=== PATIENT | female | born 1950 | race Caucasian/White ===

== ENCOUNTER 2018-11-15 18:17 | Inpatient (IN) | payer OTHER ==
[~2018-11-15] VITALS: Ht 160 cm; Wt 90.7 kg
[2018-11-15] MEDS ORDERED: QUET25TA PO (18:31)
[2018-11-15] MEDS ORDERED: LURA20TA PO (18:31)
[2018-11-15] MEDS ORDERED: METF-440 PO (18:31)
[2018-11-15] MEDS ORDERED: DULO60CA45 PO (18:31)
[2018-11-15] MEDS ORDERED: ATOR20TA PO (18:31)
[2018-11-15] MEDS ORDERED: APIX5TAB PO (18:31)
[2018-11-15] MEDS ORDERED: BUSP10TA3 PO (18:31)
[2018-11-15] MEDS ORDERED: CHOL50004 PO (18:31)
[2018-11-15] MEDS ORDERED: CYAN-51 PO (18:31)
[2018-11-15] MEDS ORDERED: CARB-93 PO (18:31)
[2018-11-15] MEDS ORDERED: CLON2TAB11 PO (18:31)
[2018-11-15 21:26] VITALS: BP 125/78
[2018-11-15] MEDS ORDERED: ACETAMINOPHEN 325 MG TABLET PO PRN (21:30)
[2018-11-15] MEDS ORDERED: BLOOD SUGAR DIAGNOSTIC 1 EACH STRIP VI ONE (21:30)
[2018-11-15] MEDS ORDERED: MAG HYDROX/AL HYDROX/SIMETH 30 ML LIQUID UDC PO PRN (21:30)
[2018-11-15] MEDS ORDERED: MAGNESIUM HYDROXIDE 30 ML LIQUID UDC PO PRN (21:30)
[2018-11-15] MEDS ORDERED: LORAZEPAM 0.5 MG TABLET PO PRN (21:30)
[2018-11-15] MEDS ORDERED: DEXTROSE 50% 50 ML DISP.SYRIN IV PRN (22:45)
[2018-11-15] MEDS: TEMAZEPAM 7.5 MG CAPSULE PO PRN (22:57)
[2018-11-16] MEDS: BLOOD SUGAR DIAGNOSTIC 1 EACH STRIP VI SCH ×4 (06:46→21:31)
[2018-11-16] MEDS: INSULIN REGULAR, HUMAN 300 UNIT/3 ML VIAL SQ PRN ×4 (06:47→22:12)
[2018-11-16 08:00] VITALS: BP 135/67
[2018-11-16] MEDS ORDERED: MISCELLANEOUS MED PO SCH (09:00)
[2018-11-16] MEDS: CLONAZEPAM 1 MG TABLET PO SCH ×3 (09:04→16:27)
[2018-11-16] MEDS: busPIRone 10 MG TABLET PO SCH ×3 (09:04→16:27)
[2018-11-16] MEDS: LURASIDONE 20 MG PO SCH (13:30)
[2018-11-16] MEDS: [UNRECOGNIZED DRUG - OTHER] PO SCH (13:30)
[2018-11-16] MEDS: LORAZEPAM 1 MG TABLET PO PRN ×2 (14:32→20:32)
[2018-11-16 15:25] VITALS: BP 138/69
[2018-11-16] MEDS: CARBIDOPA/LEVODOPA 25-100MG TABLET PO SCH (16:26)
[2018-11-16] MEDS: APIXABAN 5 MG TABLET PO SCH (16:29)
[2018-11-16] MEDS: METFORMIN HCL 500 MG TABLET PO SCH (17:37)
[2018-11-16 20:12] VITALS: BP 122/64
[2018-11-16] MEDS: ATORVASTATIN 20 MG TABLET PO SCH (20:29)
[2018-11-16] MEDS: TEMAZEPAM 7.5 MG CAPSULE PO PRN (20:29)
[2018-11-16] MEDS: DULOXETINE 60 MG CAPSULE.DR PO SCH (20:29)
[2018-11-17 06:22] LABS: BASOPHILS # (AUTO) 0.1 K/uL (0.0-8.0); EOSINOPHILS # (AUTO) 0.2 K/uL (0.0-0.7); HEMOGLOBIN 13.3 g/dL (10.9-14.3); LYMPHOCYTES # (AUTO) 2.2 K/uL (20.0-40.0); LYMPHOCYTES % (AUTO) 32.3 % (20.5-51.5); MEAN CORPUSCULAR HGB CONC 34 g/dL (32.3-35.6); MEAN CORPUSCULAR VOLUME 85.1 fL (75.5-95.3); MONOCYTES # (AUTO) 0.5 K/uL (2.0-10.0); MONOCYTES % (AUTO) 7.5 % (0.0-11.0); NEUTROPHILS # (AUTO) 3.8 K/uL (1.8-8.9); NEUTROPHILS % (AUTO) 56.2 % (38.5-71.5); PLATELET COUNT (AUTO) 205 K/uL (179-408); RED BLOOD CELL COUNT(AUTO) 4.58 MIL/uL (3.63-4.92); WHITE BLOOD COUNT (AUTO) 6.8 K/uL (3.8-11.8)
[2018-11-17 06:32] LABS: ALANINE AMINOTRANSFERASE 18 U/L (14-59); ALKALINE PHOSPHATASE 72 U/L (50-136); ASPARTATE AMINOTRANSFERASE < 5 U/L (15-37); BILIRUBIN,TOTAL 0.6 mg/dL (0.2-1.0); CARBON DIOXIDE 28 mmol/L (21-32); CHLORIDE 105 mmol/L (98-107); CREATININE 0.8 mg/dL (0.6-1.3); GLUCOSE 141 mg/dL (74-106); PHOSPHOROUS 3.7 mg/dL (2.5-4.9); POTASSIUM 4.3 mmol/L (3.5-5.1); TOTAL PROTEIN, SERUM 7.1 g/dL (6.4-8.2); UREA NITROGEN, BLOOD 14 mg/dL (7-18)
[2018-11-17] MEDS: BLOOD SUGAR DIAGNOSTIC 1 EACH STRIP VI SCH ×4 (06:51→20:37)
[2018-11-17 07:30] VITALS: BP 128/79
[2018-11-17] MEDS: CYANOCOBALAMIN 1,000 MCG TABLET PO SCH (08:21)
[2018-11-17] MEDS: LURASIDONE 20 MG PO SCH (08:21)
[2018-11-17] MEDS: [UNRECOGNIZED DRUG - OTHER] PO SCH (08:21)
[2018-11-17] MEDS: CLONAZEPAM 1 MG TABLET PO SCH ×3 (08:21→16:22)
[2018-11-17] MEDS: APIXABAN 5 MG TABLET PO SCH ×2 (08:22→16:23)
[2018-11-17] MEDS: METFORMIN HCL 500 MG TABLET PO SCH ×2 (08:25→17:07)
[2018-11-17] MEDS: busPIRone 10 MG TABLET PO SCH ×3 (08:31→16:24)
[2018-11-17] MEDS: CARBIDOPA/LEVODOPA 25-100MG TABLET PO SCH ×2 (08:31→16:24)
[2018-11-17] MEDS: INSULIN REGULAR, HUMAN 300 UNIT/3 ML VIAL SQ PRN ×3 (08:35→21:02)
[2018-11-17] MEDS: LORAZEPAM 1 MG TABLET PO PRN (09:49)
[2018-11-17 16:00] VITALS: BP 122/52
[2018-11-17] MEDS: ATORVASTATIN 20 MG TABLET PO SCH (20:29)
[2018-11-17] MEDS: DULOXETINE 60 MG CAPSULE.DR PO SCH (20:29)
[2018-11-17 20:55] VITALS: BP 141/71
[2018-11-17] MEDS: TEMAZEPAM 7.5 MG CAPSULE PO PRN (22:09)
[2018-11-18] MEDS: BLOOD SUGAR DIAGNOSTIC 1 EACH STRIP VI SCH ×4 (06:35→20:40)
[2018-11-18 07:30] VITALS: BP 142/82
[2018-11-18] MEDS: CYANOCOBALAMIN 1,000 MCG TABLET PO SCH (08:28)
[2018-11-18] MEDS: METFORMIN HCL 500 MG TABLET PO SCH ×2 (08:28→17:11)
[2018-11-18] MEDS: INSULIN REGULAR, HUMAN 300 UNIT/3 ML VIAL SQ PRN ×3 (08:28→20:43)
[2018-11-18] MEDS: CLONAZEPAM 1 MG TABLET PO SCH ×3 (08:28→17:11)
[2018-11-18] MEDS: CARBIDOPA/LEVODOPA 25-100MG TABLET PO SCH ×2 (08:29→17:11)
[2018-11-18] MEDS: busPIRone 10 MG TABLET PO SCH ×3 (08:30→17:11)
[2018-11-18] MEDS: APIXABAN 5 MG TABLET PO SCH ×2 (08:31→17:23)
[2018-11-18] MEDS: [UNRECOGNIZED DRUG - OTHER] PO SCH (09:20)
[2018-11-18] MEDS: LURASIDONE 20 MG PO SCH (09:20)
[2018-11-18] MEDS: LORAZEPAM 1 MG TABLET PO PRN (13:52)
[2018-11-18 16:00] VITALS: BP 147/70
[2018-11-18 20:00] VITALS: BP 129/60
[2018-11-18] MEDS: DULOXETINE 60 MG CAPSULE.DR PO SCH (20:33)
[2018-11-18] MEDS: ATORVASTATIN 20 MG TABLET PO SCH (20:33)
[2018-11-18] MEDS: TEMAZEPAM 7.5 MG CAPSULE PO PRN (22:31)
[2018-11-19] MEDS: BLOOD SUGAR DIAGNOSTIC 1 EACH STRIP VI SCH ×4 (06:34→20:39)
[2018-11-19 07:58] VITALS: BP 114/51
[2018-11-19] MEDS: CYANOCOBALAMIN 1,000 MCG TABLET PO SCH (08:15)
[2018-11-19] MEDS: CLONAZEPAM 1 MG TABLET PO SCH ×3 (08:15→16:59)
[2018-11-19] MEDS: METFORMIN HCL 500 MG TABLET PO SCH ×2 (08:15→16:59)
[2018-11-19] MEDS: [UNRECOGNIZED DRUG - OTHER] PO SCH (08:16)
[2018-11-19] MEDS: LURASIDONE 20 MG PO SCH (08:16)
[2018-11-19] MEDS: busPIRone 10 MG TABLET PO SCH ×3 (08:16→16:59)
[2018-11-19] MEDS: CARBIDOPA/LEVODOPA 25-100MG TABLET PO SCH ×2 (08:16→16:59)
[2018-11-19] MEDS: APIXABAN 5 MG TABLET PO SCH ×2 (08:17→16:58)
[2018-11-19] MEDS: INSULIN REGULAR, HUMAN 300 UNIT/3 ML VIAL SQ PRN ×4 (08:21→20:47)
[2018-11-19] MEDS: LORAZEPAM 1 MG TABLET PO PRN (15:55)
[2018-11-19 16:00] VITALS: BP 144/81
[2018-11-19 20:15] VITALS: BP 119/43
[2018-11-19] MEDS: ATORVASTATIN 20 MG TABLET PO SCH (20:43)
[2018-11-19] MEDS: DULOXETINE 60 MG CAPSULE.DR PO SCH (20:43)
[2018-11-20] MEDS: BLOOD SUGAR DIAGNOSTIC 1 EACH STRIP VI SCH ×4 (06:24→20:55)
[2018-11-20 07:55] VITALS: BP 118/99
[2018-11-20] MEDS: busPIRone 10 MG TABLET PO SCH ×3 (08:02→16:08)
[2018-11-20] MEDS: [UNRECOGNIZED DRUG - OTHER] PO SCH (08:02)
[2018-11-20] MEDS: METFORMIN HCL 500 MG TABLET PO SCH ×2 (08:02→17:00)
[2018-11-20] MEDS: LURASIDONE 20 MG PO SCH (08:02)
[2018-11-20] MEDS: CLONAZEPAM 1 MG TABLET PO SCH ×3 (08:02→16:08)
[2018-11-20] MEDS: CYANOCOBALAMIN 1,000 MCG TABLET PO SCH (08:02)
[2018-11-20] MEDS: APIXABAN 5 MG TABLET PO SCH ×2 (08:03→16:09)
[2018-11-20] MEDS: INSULIN REGULAR, HUMAN 300 UNIT/3 ML VIAL SQ PRN ×2 (08:07→12:02)
[2018-11-20] MEDS: CARBIDOPA/LEVODOPA 25-100MG TABLET PO SCH ×2 (08:14→16:08)
[2018-11-20] MEDS: LORAZEPAM 1 MG TABLET PO PRN (10:01)
[2018-11-20 16:15] VITALS: BP 133/64
[2018-11-20] MEDS: ATORVASTATIN 20 MG TABLET PO SCH (20:41)
[2018-11-20] MEDS: DULOXETINE 60 MG CAPSULE.DR PO SCH (20:41)
[2018-11-20 21:12] VITALS: BP 109/49
[2018-11-20] MEDS: TEMAZEPAM 7.5 MG CAPSULE PO PRN (23:08)
[2018-11-21] MEDS: BLOOD SUGAR DIAGNOSTIC 1 EACH STRIP VI SCH ×4 (06:40→20:25)
[2018-11-21 07:30] VITALS: BP 127/73
[2018-11-21] MEDS: INSULIN REGULAR, HUMAN 300 UNIT/3 ML VIAL SQ PRN ×2 (07:39→11:30)
[2018-11-21] MEDS: CLONAZEPAM 1 MG TABLET PO SCH ×3 (08:00→16:41)
[2018-11-21] MEDS: CYANOCOBALAMIN 1,000 MCG TABLET PO SCH (08:00)
[2018-11-21] MEDS: busPIRone 10 MG TABLET PO SCH ×3 (08:00→16:41)
[2018-11-21] MEDS: [UNRECOGNIZED DRUG - OTHER] PO SCH (08:00)
[2018-11-21] MEDS: LURASIDONE 20 MG PO SCH (08:00)
[2018-11-21] MEDS: METFORMIN HCL 500 MG TABLET PO SCH ×2 (08:00→17:02)
[2018-11-21] MEDS: CARBIDOPA/LEVODOPA 25-100MG TABLET PO SCH ×2 (08:01→16:41)
[2018-11-21] MEDS: APIXABAN 5 MG TABLET PO SCH ×2 (08:03→16:41)
[2018-11-21 16:00] VITALS: BP 119/49
[2018-11-21 19:44] VITALS: BP 130/74
[2018-11-21] MEDS: ATORVASTATIN 20 MG TABLET PO SCH (20:18)
[2018-11-21] MEDS: DULOXETINE 60 MG CAPSULE.DR PO SCH (20:19)
[2018-11-21] MEDS: TEMAZEPAM 7.5 MG CAPSULE PO PRN (21:55)
[2018-11-22] MEDS: BLOOD SUGAR DIAGNOSTIC 1 EACH STRIP VI SCH ×4 (06:36→20:39)
[2018-11-22 07:30] VITALS: BP 100/56
[2018-11-22] MEDS: CYANOCOBALAMIN 1,000 MCG TABLET PO SCH (08:00)
[2018-11-22] MEDS: METFORMIN HCL 500 MG TABLET PO SCH ×2 (08:00→17:02)
[2018-11-22] MEDS: CLONAZEPAM 1 MG TABLET PO SCH ×3 (08:00→16:13)
[2018-11-22] MEDS: CARBIDOPA/LEVODOPA 25-100MG TABLET PO SCH ×2 (08:00→16:13)
[2018-11-22] MEDS: [UNRECOGNIZED DRUG - OTHER] PO SCH (08:01)
[2018-11-22] MEDS: LURASIDONE 20 MG PO SCH (08:01)
[2018-11-22] MEDS: busPIRone 10 MG TABLET PO SCH ×3 (08:01→16:57)
[2018-11-22] MEDS: APIXABAN 5 MG TABLET PO SCH ×2 (08:02→16:15)
[2018-11-22] MEDS: INSULIN REGULAR, HUMAN 300 UNIT/3 ML VIAL SQ PRN ×4 (08:03→20:42)
[2018-11-22] MEDS: LORAZEPAM 1 MG TABLET PO PRN ×2 (10:29→19:57)
[2018-11-22 16:06] VITALS: BP 105/57
[2018-11-22 20:26] VITALS: BP 137/71
[2018-11-22] MEDS: ATORVASTATIN 20 MG TABLET PO SCH (20:32)
[2018-11-22] MEDS: DULOXETINE 60 MG CAPSULE.DR PO SCH (20:32)
[2018-11-22] MEDS: TEMAZEPAM 7.5 MG CAPSULE PO PRN (22:20)
[2018-11-23] MEDS: BLOOD SUGAR DIAGNOSTIC 1 EACH STRIP VI SCH ×4 (06:54→20:11)
[2018-11-23 07:30] VITALS: BP 131/50
[2018-11-23] MEDS: METFORMIN HCL 500 MG TABLET PO SCH ×2 (07:58→17:08)
[2018-11-23] MEDS: CARBIDOPA/LEVODOPA 25-100MG TABLET PO SCH ×2 (08:01→16:20)
[2018-11-23] MEDS: CYANOCOBALAMIN 1,000 MCG TABLET PO SCH (08:01)
[2018-11-23] MEDS: LURASIDONE 20 MG PO SCH (08:01)
[2018-11-23] MEDS: busPIRone 10 MG TABLET PO SCH ×3 (08:01→16:20)
[2018-11-23] MEDS: CLONAZEPAM 1 MG TABLET PO SCH ×3 (08:01→16:19)
[2018-11-23] MEDS: [UNRECOGNIZED DRUG - OTHER] PO SCH (08:01)
[2018-11-23] MEDS: APIXABAN 5 MG TABLET PO SCH ×2 (08:03→16:35)
[2018-11-23] MEDS: INSULIN REGULAR, HUMAN 300 UNIT/3 ML VIAL SQ PRN ×2 (08:03→12:04)
[2018-11-23 16:00] VITALS: BP 108/49
[2018-11-23] MEDS: DULOXETINE 60 MG CAPSULE.DR PO SCH (20:52)
[2018-11-23] MEDS: ATORVASTATIN 20 MG TABLET PO SCH (20:52)
[2018-11-23 21:11] VITALS: BP 121/63
[2018-11-23] MEDS: TEMAZEPAM 7.5 MG CAPSULE PO PRN (21:56)
[2018-11-24 07:30] VITALS: BP 106/53
[2018-11-24] MEDS: BLOOD SUGAR DIAGNOSTIC 1 EACH STRIP VI SCH ×2 (07:50→11:28)
[2018-11-24] MEDS: CYANOCOBALAMIN 1,000 MCG TABLET PO SCH (08:08)
[2018-11-24] MEDS: CLONAZEPAM 1 MG TABLET PO SCH ×2 (08:08→12:07)
[2018-11-24] MEDS: METFORMIN HCL 500 MG TABLET PO SCH (08:08)
[2018-11-24] MEDS: CARBIDOPA/LEVODOPA 25-100MG TABLET PO SCH (08:09)
[2018-11-24] MEDS: busPIRone 10 MG TABLET PO SCH ×2 (08:09→12:06)
[2018-11-24] MEDS: APIXABAN 5 MG TABLET PO SCH (08:10)
[2018-11-24] MEDS: LURASIDONE 20 MG PO SCH (08:11)
[2018-11-24] MEDS: [UNRECOGNIZED DRUG - OTHER] PO SCH (08:11)
[2018-11-24] MEDS: INSULIN REGULAR, HUMAN 300 UNIT/3 ML VIAL SQ PRN ×2 (08:13→12:08)
[2018-11-24] MEDS: LORAZEPAM 1 MG TABLET PO PRN (11:23)
== END 2018-11-24 13:00 | disposition home or self-care (01) | DRG 885 ==
LOC: ER 18:21 → GPSOV3 20:36 → GPS 11-16 22:45
PROVIDERS: ADMIT Psychiatry & Neurology Psychiatry; ATTEND Nurse Practitioner Acute Care
DX: F33.2 Major depressive disorder, recurrent severe without psychotic features (principal); D68.59 Other primary thrombophilia; E46 Unspecified protein-calorie malnutrition; E11.9 Type 2 diabetes mellitus without complications; E78.5 Hyperlipidemia, unspecified; G20 Parkinson's disease; F41.9 Anxiety disorder, unspecified; Z68.34 Body mass index [BMI] 34.0-34.9, adult; E66.9 Obesity, unspecified; Z91.5 Personal history of self-harm; Z86.718 Personal history of other venous thrombosis and embolism; Z79.01 Long term (current) use of anticoagulants; Z79.899 Other long term (current) drug therapy; Z79.84 Long term (current) use of oral hypoglycemic drugs
CPT/HCPCS: 36415; 71045; 83735; 84100; 85025; A4663; J1815